=== PATIENT | female | born 1950 | race Caucasian/White ===

== ENCOUNTER 2020-12-04 14:32 | Emergency (ER) | payer MEDICARE, OTHER ==
--- NOTE | 2020-12-04 15:38 | EDM.PDOC ---
<OfficerLeodan - Last Filed: 12/04/20 16:52> ED HPI GENERAL MEDICAL PROBLEM - General Chief Complaint: General Stated Complaint: FATIGUE Time Seen by Provider: 12/04/20 14:43 Source of Information: Reports: Patient, Family, RN Notes Reviewed History Limitations: Reports: No Limitations - History of Present Illness INITIAL COMMENTS - FREE TEXT/NARRATIVE: 70-year-old female presents emergency department with a complaint of fatigue, she recently traveled here from [place] she is a chemotherapy patient currently undergoing chemotherapy therapy does have an issue with rectal bleeding she recently had a treatment has had some bright red blood per rectum but this is usual course after chemotherapy she has had a problem with her hemoglobin being low as well. She denies any fevers no nausea vomiting no shortness of breath or chest pain just complains of generalized fatigue - Related Data Allergies Allergy/AdvReac Type Severity Reaction Status Date / Time No Known Allergies Allergy Verified 12/04/20 15:03 Home Meds: Home Meds Apixaban [Eliquis] 5 mg PO BID 12/04/20 [History] Doxycycline Monohydrate 100 mg PO BID #20 capsule 12/04/20 [Rx] Multivitamin [Multi-Vitamin Daily] 1 tab PO DAILY 12/04/20 [History] Past Medical History HEENT History: Reports: Impaired Vision [employer] WORK[employer] SPECIALIST History: Reports: Musculoskeletal History: Reports: Fracture Neurological History: Reports: Neuropathy, Peripheral Hematologic History: Reports: Anemia Oncologic (Cancer) History: Reports: Colon, Liver - Past Surgical History GI Surgical History: Reports: Cholecystectomy, Colonoscopy Oncologic Surgical History: Reports: Other (See Below) Other Oncologic Surgeries/Procedures: liver biopsy Social & Family History - Tobacco Use Tobacco Use Status *Q: Never Tobacco User - Caffeine Use Caffeine Use: Reports: None - Recreational Drug Use Recreational Drug Use: No ED ROS GENERAL - Review of Systems Review Of Systems: See Below Constitutional: Reports: Fever (Fever was found on initial intake she denies this from home), Fatigue HEENT: Reports: No Symptoms Respiratory: Reports: No Symptoms Cardiovascular: Reports: No Symptoms GI/Abdominal: Reports: No Symptoms Skin: Reports: Rash (New rash on her back) ED EXAM, GENERAL - Physical Exam Exam: See Below Free Text/Narrative:: Erythema migrans located over the left shoulder Exam Limited By: No Limitations General Appearance: Alert, WD/WN, No Apparent Distress Respiratory/Chest: No Respiratory Distress, Lungs Clear, Normal Breath Sounds, No Accessory Muscle Use, Chest Non-Tender Cardiovascular: Regular Rate, Rhythm, No Murmur GI/Abdominal: Soft, Non-Tender Departure - Departure Disposition: Home, Self-Care 01 Clinical Impression: Blood loss anemia, Rectal bleeding, Tick-borne disease - Discharge Information Prescriptions: Doxycycline Monohydrate 100 mg PO BID #20 capsule Instructions: Lower Gastrointestinal Bleeding Referrals: PCP,None [Primary Care Provider] - Forms: ED Department Discharge Care Plan Goals: Continue your antibiotic twice daily as prescribed, continue your regular medications and increase diet and activity as tolerated. Return anytime if worsening such as difficulty breathing, uncontrolled pain, increased bleeding or other concerns. Sepsis Event Note (ED) - Evaluation Sepsis Screening Result: No Definite Risk - Assessment/Plan Plan: Assessment Acuity = acute Site and laterality = [place] tick associated rash illness from the [place] tick [facility] complicated the patient with known history of colon cancer on chemotherapy developing bright red blood per rectum after each chemotherapy treatment causing severe anemia Etiology = tickborne illness [place] tick for the STARI side effect of chemotherapy for the anemia Manifestations = fatigue and weakness Location of injury = Home Lab values = hemoglobin low at 6.8 consistent with macro chromic anemia platelets low at 22 consistent with thrombocytopenia, sodium low 133 consistent hyponatremia lactic acid slightly elevated 2.3 consistent with lactic acidosis calcium is 7.4 consistent with hypocalcemia CRP is 7.11 procalcitonin low at 0.56 Plan Because she has a classic rash erythema migrans elected to treat empirically she is [place] do have a heavy infestation [facility] with [place] ticks doxycycline 100 mg p.o. twice daily x10 days, her anemia will plan for transfusion in the emergency department 1 unit and reassess at that time This note was dictated using [employer] voice recognition software please call with any questions on syntax or grammar. <Sherman Thayer - Last Filed: 12/04/20 23:55> Course - Vital Signs Last Recorded V/S: Last Vital Signs Temp 96.6 F L 12/04/20 22:39 Pulse 70 12/04/20 22:39 Resp 18 12/04/20 22:39 BP 126/60 12/04/20 22:39 Pulse Ox 99 12/04/20 21:33 - Orders/Labs/Meds Orders: Active Orders 24 hr Category Date Time Status PATIENT RETYPE [BBK] Stat Lab 12/04/20 17:00 Results RED BLOOD CELLS LP [BBK] Stat Lab 12/04/20 17:00 Results TYPE AND SCREEN [BBK] Stat Lab 12/04/20 17:00 Results Transfuse Red Blood Cells [COMM] Stat Oth 12/04/20 19:55 Ordered Labs: Laboratory Tests 12/04/20 12/04/20 12/04/20 Range/Units 15:44 15:44 15:44 WBC 5.8 (4.5-11.0) K/uL RBC 2.12 L (3.30-5.50) M/uL Hgb 6.8 L* (12.0-15.0) g/dL Hct 21.1 L (36.0-48.0) % MCV 100 H (80-98) fL MCH 32 H (27-31) pg MCHC 32 (32-36) % Plt Count 23 L* (150-400) K/uL Add Manual Diff Yes Neutrophils % (Manual) 76 H (36-66) % Band Neutrophils % 4 L (5-11) % Lymphocytes % (Manual) 14 L (24-44) % Monocytes % (Manual) 6 (2-6) % Atypical Lymphocytes Occasional Polychromasia Patient Financial Services Coordinator Hypochromasia Marked H Anisocytosis Moderate H Microcytosis Few Macrocytosis Few Schistocytes Occasional Sodium 133 L (140-148) mmol/L Potassium 4.1 (3.6-5.2) mmol/L Chloride 98 L (100-108) mmol/L Carbon Dioxide 25 (21-32) mmol/L Anion Gap 14.1 H (5.0-14.0) mmol/L BUN 17 (7-18) mg/dL Creatinine 0.9 (0.6-1.0) mg/dL Est Cr Clr Drug Dosing 43.72 mL/min Estimated GFR (MDRD) > 60 (>60) Glucose 150 H (74-106) mg/dL Lactic Acid 2.3 H (0.4-2.0) mmol/L Calcium 7.4 L (8.5-10.1) mg/dL Total Bilirubin 0.5 (0.2-1.0) mg/dL AST 20 (15-37) U/L ALT 22 (12-78) U/L Alkaline Phosphatase 152 H (46-116) U/L C-Reactive Protein 7.11 H (0.0-0.3) mg/dL Total Protein 4.8 L (6.4-8.2) g/dL Albumin 2.2 L (3.4-5.0) g/dL Globulin 2.6 (2.3-3.5) g/dL Albumin/Globulin Ratio 0.9 L (1.2-2.2) Procalcitonin ng/mL Blood Type Gel Antibody Screen Crossmatch 12/04/20 12/04/20 Range/Units 15:44 17:00 WBC (4.5-11.0) K/uL RBC (3.30-5.50) M/uL Hgb (12.0-15.0) g/dL Hct (36.0-48.0) % MCV (80-98) fL MCH (27-31) pg MCHC (32-36) % Plt Count (150-400) K/uL Add Manual Diff Neutrophils % (Manual) (36-66) % Band Neutrophils % (5-11) % Lymphocytes % (Manual) (24-44) % Monocytes % (Manual) (2-6) % Atypical Lymphocytes Polychromasia Hypochromasia Anisocytosis Microcytosis Macrocytosis Schistocytes Sodium (140-148) mmol/L Potassium (3.6-5.2) mmol/L Chloride (100-108) mmol/L Carbon Dioxide (21-32) mmol/L Anion Gap (5.0-14.0) mmol/L BUN (7-18) mg/dL Creatinine (0.6-1.0) mg/dL Est Cr Clr Drug Dosing mL/min Estimated GFR (MDRD) (>60) Glucose (74-106) mg/dL Lactic Acid (0.4-2.0) mmol/L Calcium (8.5-10.1) mg/dL Total Bilirubin (0.2-1.0) mg/dL AST (15-37) U/L ALT (12-78) U/L Alkaline Phosphatase (46-116) U/L C-Reactive Protein (0.0-0.3) mg/dL Total Protein (6.4-8.2) g/dL Albumin (3.4-5.0) g/dL Globulin (2.3-3.5) g/dL Albumin/Globulin Ratio (1.2-2.2) Procalcitonin 0.56 ng/mL Blood Type O POSITIVE Gel Antibody Screen Negative Crossmatch See Detail Meds: Medications Discontinued Medications Generic Name Dose Route Start Last Admin Trade Name Freq PRN Reason Stop Dose Admin Acetaminophen 650 mg 12/04/20 16:52 12/04/20 17:22 Acetaminophen 325 Mg Tab PO 12/04/20 16:53 650 mg NOW ONE Administration Doxycycline Hyclate 100 mg 12/04/20 16:47 12/04/20 17:02 Doxycycline 100 Mg Cap PO 12/04/20 16:48 100 mg ONETIME ONE Administration Heparin Sodium (Porcine) Confirm 12/04/20 22:44 12/04/20 22:58 Heparin Sodium 100 Units/Ml 5 Ml Syringe Administered 12/04/20 22:45 Not Given Dose 500 units .ROUTE .STK-MED ONE Heparin Sodium (Porcine) 500 units 12/04/20 22:45 12/04/20 22:48 Heparin Sodium 100 Units/Ml 5 Ml Syringe FLUSH 500 units ASDIRECTED PRN Administration Other Departure - Departure Time of Disposition: 23:07 Sepsis Event Note (ED) - Focused Exam Vital Signs: Vital Signs Temp Temp Pulse Resp BP Pulse Ox 12/04/20 22:39 96.6 F L 70 18 126/60 12/04/20 22:38 96.6 F L 70 18 126/60 12/04/20 21:33 95 F L 58 L 17 116/52 L 99 12/04/20 21:18 95 F L 56 L 17 106/54 L 99 12/04/20 21:03 95 F L 57 L 16 107/51 L 100 12/04/20 20:33 94.9 F L 57 L 17 91/52 L 12/04/20 20:25 94.8 F L 57 L 16 89/54 L 100 12/04/20 20:23 94.9 F L 57 L 16 89/53 L 98 12/04/20 20:18 94.9 F L 56 L 16 89/53 L 100 12/04/20 19:55 94.9 F L 57 L 16 89/53 L 12/04/20 19:48 95.5 F L 53 L 16 100/52 L 99 12/04/20 19:33 95.5 F L 53 L 16 111/60 99 12/04/20 19:18 95.3 F L 57 L 16 98/62 100 12/04/20 18:49 97.3 F 56 L 16 88/55 L 100 12/04/20 18:34 97.4 F 58 L 16 95/56 L 97 12/04/20 18:19 98.0 F 59 L 16 78/48 L 93 L 12/04/20 17:38 58 L 16 97/52 L 100 12/04/20 17:18 65 16 91/55 L 94 L 12/04/20 15:12 101.2 F H 76 18 117/32 L 95 12/04/20 15:02 101.2 F H 76 18 117/32 L 95 - My Orders Last 24 Hours: My Active Orders 12/04/20 19:55 Transfuse Red Blood Cells [COMM] Stat - Assessment/Plan Last 24 Hours: My Active Orders 12/04/20 19:55 Transfuse Red Blood Cells [COMM] Stat
[2020-12-04] MEDS ORDERED: Doxycycline 100 MG Cap PO ONE (16:47)
[2020-12-04] MEDS ORDERED: Acetaminophen 325 MG Tab PO ONE (16:52)
== END 2020-12-04 23:15 | disposition home or self-care (01) ==
LOC: JP.ED 14:32 → EDBD 14:32 → JP.ED 23:15
DX: K62.5 Hemorrhage of anus and rectum (principal); D50.0 Iron deficiency anemia secondary to blood loss (chronic); A93.8 Other specified arthropod-borne viral fevers; G62.9 Polyneuropathy, unspecified; Z79.01 Long term (current) use of anticoagulants
CPT/HCPCS: 36415; 36430; 80053; 83605; 84145; 85025; 86140; 86850; 86900; 86901; 86920; 86922; 99284; A9270; J1642; P9016; 99283